=== PATIENT | male | born 1965 | race Caucasian/White ===

== ENCOUNTER 2016-05-28 17:02 | Emergency (ER) | payer BC ==
[2016-05-28] MEDS ORDERED: Ketorolac INJ* 30 MG/ML 1 ML VIAL IM ONE (17:21)
[2016-05-28] MEDS ORDERED: Ondansetron ODT TAB* 4 MG PO ONE (17:21)
--- NOTE | 2016-05-28 18:17 | RAD ---
Indication: Right flank pain. CT of the abdomen and pelvis was performed without oral or IV contrast administration. Coronal and sagittal reconstructed images were obtained. The lung bases demonstrate no pleural fluid, nodules or masses. Heart is of normal size without evidence of pericardial effusion. There is mild right hydronephrosis and hydroureter. There is a 3 mm calculi in the right ureterovesicular junction. Fullness of the right renal collecting system is noted. The left kidney demonstrates no hydronephrosis. The liver is normal in size. In the dome of the liver there is a well-circumscribed water density lobe lesion measuring 12 mm consistent with cysts. No other focal lesions or intrahepatic biliary duct dilatation is noted. The gallbladder demonstrates no calcified gallstones. No pericholecystic fluid or wall thickening is identified. The pancreas demonstrates no mass or pancreatic duct dilatation. The common bile duct is not dilated. The spleen is normal in size. No adrenal lesions are noted. The aorta and inferior vena cava are unremarkable. No definite retroperitoneal adenopathy is noted. Common iliac and external iliac arteries are unremarkable. Urinary bladder is unremarkable. No hernias are noted. No dilated loops of bowel are noted. IMPRESSION: THERE IS A 3 MM CALCULI IN THE RIGHT URETEROVESICULAR JUNCTION WITH MILD RIGHT HYDROURETER AND MILD RIGHT HYDRONEPHROSIS. ADDITIONAL TINY NONOBSTRUCTING CALCULI IS NOTED IN THE MIDPORTION OF THE RIGHT KIDNEY. LEFT KIDNEY IS UNREMARKABLE. LIKELY HEPATIC CYST IS PRESENT.
--- NOTE | 2016-05-28 18:34 | UC ---
Abdominal Pain Male HPI - History of Current Complaint Chief Complaint: UCBackPain Stated Complaint: BACK PAIN Time Seen by Provider: 05/28/16 17:15 Hx Obtained From: Patient Onset/Duration: Sudden Onset, Lasting Hours Timing: Constant Severity Initially: Moderate Severity Currently: Severe Pain Intensity: 8 Pain Scale Used: 0-10 Numeric Location: Other - right flank Character: Colicy Alleviating Factor(s): Nothing Associated Signs And Symptoms: Positive: Diaphoresis, Nausea, Vomiting - x 1 - Allergies/Home Medications Allergies/Adverse Reactions: Allergies Allergy/AdvReac Type Severity Reaction Status Date / Time No Known Allergies Allergy Verified 05/28/16 17:13 PMH/Surg Hx/FS Hx/Imm Hx Cardiovascular History Of: Reports: Cardiac Disorders - TACHYCARDIA, Hypertension - borderline - Surgical History Surgical History: None - Family History Known Family History: Positive: Hypertension - Social History Alcohol Use: Occasionally Substance Use Type: None Smoking Status (MU): Never Smoked Tobacco Review of Systems Constitutional: Negative Skin: Negative Eyes: Negative ENT: Negative Respiratory: Negative Cardiovascular: Negative Gastrointestinal: Vomiting Genitourinary: Negative Motor: Negative Neurovascular: Negative Musculoskeletal: Negative Neurological: Negative Psychological: Negative All Other Systems Reviewed And Are Negative: Yes Physical Exam Triage Information Reviewed: Yes Appearance: Well-Appearing, Well-Nourished, Pain Distress Vital Signs: Initial Vital Signs Temp 97.9 F 05/28/16 17:06 Pulse 86 05/28/16 17:06 Resp 20 05/28/16 17:06 BP 217/107 05/28/16 17:06 Pulse Ox 100 05/28/16 17:06 Vital Signs Reviewed: Yes Eyes: Positive: Conjunctiva Clear ENT: Positive: Hearing grossly normal. Negative: Nasal congestion, Tonsillar exudate, Trismus Neck: Positive: Supple Respiratory: Positive: Lungs clear, Normal breath sounds, No respiratory distress Cardiovascular: Positive: RRR, No Murmur Abdomen Description: Positive: Nontender, No Organomegaly, CVA Tenderness (R) - mild. Negative: Bruit, CVA Tenderness (L), Hepatomegaly, Splenomegaly Musculoskeletal: Positive: ROM Intact, No Edema Neurological: Positive: Alert Psychological Exam: Normal Skin Exam: Normal Re-Evaluation - Re-Evaluation First Eval Change: Improved - 2 pain Abd Pain Male Course/Dx - Differential Dx/Clinical Impression Provider Diagnoses: right urolithiasis Discharge - Discharge Plan Condition: Stable Disposition: HOME Prescriptions: HYDROcodone/ACETAMIN 5-325 MG* [[place] 5-325 TAB*] 1 tab PO Q4H PRN #10 tab MDD 6 PRN Reason: Pain Naproxen [Naproxen 500 MG TABS] 500 mg PO BID PRN #14 tab PRN Reason: Pain Ondansetron TAB* [Zofran Tab*] 4 mg PO Q6H PRN #10 tab PRN Reason: Nausea Patient Education Materials: Kidney Stones (ED) Referrals: Amilcar Blank MD [Primary Care Provider] - Additional Instructions: you should be able to pass this stone 8-12 glasses of water/d to ER for: Increased pain (not controlled by pain meds) vomiting fever you need to get rechecked in 1-2 weeks (your BP was high)
== END 2016-05-28 18:45 | disposition home or self-care (01) ==
LOC: UCEAST 17:02
DX: N13.2 Hydronephrosis with renal and ureteral calculous obstruction (principal)
CPT/HCPCS: 74176; 81002; 96372; 99212; A9270-GY; G0463; J1885

== ENCOUNTER 2018-10-20 16:32 | Emergency (ER) | payer BC ==
[2018-10-20 16:44] VITALS: BP 144/86
[2018-10-20] MEDS ORDERED: Ibuprofen TAB* 600 MG PO ONE (17:42)
--- NOTE | 2018-10-20 17:44 | UC ---
Respiratory Complaint HPI - HPI Summary HPI Summary: 53-year-old patient presents with 4 day history of fever, malaise, body aches, fatigue, SOB, and productive cough for green sputum. Denies ear pain, sore throat, nasal congestion, chest pain, abdominal pain, nausea, or vomiting. - History of Current Complaint Chief Complaint: UCRespiratory Stated Complaint: COUGH Time Seen by Provider: 10/20/18 17:24 Hx Obtained From: Patient Pain Intensity: 5 - Allergies/Home Medications Allergies/Adverse Reactions: Allergies Allergy/AdvReac Type Severity Reaction Status Date / Time No Known Allergies Allergy Verified 10/20/18 16:44 Home Medications: Home Medications Diphenhydra/Phenyleph/Acetamin [Cold & Flu Relief Multi-Sym Lq] 180 ml PO Q6HR PRN 10/20/18 [History Confirmed 10/20/18] Loratadine [Claritin 10 MG CAP] 10 mg PO DAILY 10/20/18 [History Confirmed 10/20] PMH/Surg Hx/FS Hx/Imm Hx Previously Healthy: Yes - Surgical History Surgical History: None - Family History Known Family History: Positive: Hypertension - Social History Occupation: Employed Full-time Lives: With Family Alcohol Use: Occasionally Substance Use Type: None Smoking Status (MU): Never Smoked Tobacco Review of Systems All Other Systems Reviewed And Are Negative: Yes Constitutional: Positive: Fever, Chills, Fatigue Skin: Negative: Rash Eyes: Negative: Drainage, Eye Redness ENT: Negative: Sore Throat, Ear Ache, Nasal Discharge, Sinus Congestion, Sinus Pain/Tenderness Respiratory: Positive: Shortness Of Breath, Cough Cardiovascular: Negative: Palpitations, Chest Pain Gastrointestinal: Negative: Abdominal Pain, Vomiting, Diarrhea, Nausea Genitourinary: Positive: Negative Musculoskeletal: Positive: Negative Neurological: Positive: Negative Is Patient Immunocompromised?: No Physical Exam - Summary Physical Exam Summary: GENERAL APPEARANCE: Well developed, well nourished, alert and cooperative, and appears to be in no acute distress. EYES: Conjunctiva clear. No drainage. EARS: External auditory canals and tympanic membranes clear, hearing grossly intact. NOSE: No nasal discharge. THROAT: Pharynx normal. No tonsilar inflammation, swelling, exudate, or lesions. Uvula midline. Oral cavity normal. Teeth and gingiva in good general condition. NECK: Neck supple, non-tender without lymphadenopathy. CARDIAC: Normal S1 and S2. No S3, S4 or murmurs. Rhythm is regular. Tachycardic. There is no peripheral edema, cyanosis or pallor. Extremities are warm and well perfused. Capillary refill is less than 2 seconds. Peripheral pulses intact. LUNGS: Bilateral diffuse wheezes, crackles in the left base. ABDOMEN: Positive bowel sounds. Soft, nondistended, nontender. No guarding or rebound. No masses or hepatosplenomegally. MUSKULOSKELETAL: ROM intact to all extremities. No joint erythema or tenderness. Normal muscular development. Normal gait. SKIN: Skin normal color, texture and turgor with no lesions or eruptions. Triage Information Reviewed: Yes Vital Signs: Initial Vital Signs Temp 102.6 F 10/20/18 16:40 Pulse 112 10/20/18 16:40 Resp 16 10/20/18 16:40 BP 144/86 10/20/18 16:40 Pulse Ox 98 10/20/18 16:40 Vital Signs Reviewed: Yes Diagnostics - Radiology No standard instances Radiology Interpretation Completed By: ED Physician - LLL infiltrate Re-Evaluation - Re-Evaluation First Eval Re-Evaluation Time: 18:20 Change: Improved Comment: Patient states breathing easier. Continues to have mild scattered wheezes blataterally but air exchange improved. Respiratory Course/Dx - Course Course Of Treatment: 53-year-old patient presents with 4 day history of fever, malaise, body aches, fatigue, SOB, and productive cough for green sputum. Denies ear pain, sore throat, nasal congestion, chest pain, abdominal pain, nausea, or vomiting. Patient was noted to be febrile with a temperature of 102.6 F at triage. His temperature increased to as high as 103.6 during his time in the clinic. He was also noted to be tachycardic otherwise VSS. He was given ibuprofen 600 mg PO with a reduction in his temperature. On exam, patient was tachycardic and had bilateral diffuse wheezes with crackles in the left base. Preliminary reading of CXR was infiltrate in the LLL. Patient was given a DuoNeb with improvement in his SOB and wheezing. Will treat him for CAP with doxycycline 100 mg BID x 10 days. I have also prescribed prednisone 50 mg daily x 5 days and an albuterol inhaler 2 puffs every 4-6 hours for the SOB and wheezing as well as Tessalon Perles 1 cap every 8 hours as needed for cough. He is to follow up with his PCP within 5 days for a recheck of his symptoms. Anticipatory guidance and warning symptoms were reviewed with the patient. Verbalizes understanding and agrees with POC. - Differential Dx/Diagnosis Differential Diagnosis/HQI/PQRI: Bronchitis, Influenza, Lower Resp Infection Provider Diagnosis: CAP (community acquired pneumonia) Discharge - Sign-Out/Discharge Documenting (check all that apply): Patient Departure All imaging exams completed and their final reports reviewed: No Studies - Discharge Plan Condition: Stable Disposition: HOME Prescriptions: Albuterol HFA INHALER* [Ventolin HFA Inhaler*] 2 puff INH Q4H PRN #1 mdi PRN Reason: Sob/Wheezing Benzonatate CAP* [Tessalon 100 MG CAP*] 100 mg PO TID PRN #21 cap PRN Reason: Cough Doxycycline Hyclate 100 mg PO BID #20 tablet predniSONE TAB* [Deltasone TAB*] 50 mg PO DAILY #5 tab Patient Education Materials: Pneumonia (ED) Referrals: Amilcar Blank MD [Primary Care Provider] - 5 Days Additional Instructions: The x-ray performed in the clinic today does appear to show a left lower pneumonia. The x-ray will be reviewed by the radiologist tomorrow and we will notify you of they see something that will change her plan of care. Start doxycycline 100 mg 1 tablet twice a day for 10 days to treat the infection. Avoid milk products for at least 2 hours before or after taking this medication as it will affect the absorption of the antibiotic. You will also need to take precautions when out in the sun while on this medication as it will cause you to burn more easily. Start prednisone 50 mg 1 tablet daily for the next 5 days to help with the inflammation your airways and the wheezing. X Use the albuterol inhaler 2 puffs every 4-6 hours as needed for any shortness of breath or wheezing. Get plenty of rest. Drink plenty of fluids. Run a cool mist humidifer in your room at night. Take over the counter acetaminophen (Tylenol) or ibuprofen (Advil, Motrin) according to directions as needed for pain or fever. Take Tessalon Perles 1 cap every 8 hours as needed for cough. Follow up with your primary care provider within 5 days for recheck of symptoms. Seek immediate medical attention in the emergency room if you have fever greater than 100.5 F despite taking acetaminophen or ibuprofen, have chest pain , difficulty breathing, or have any worsening of symptoms. - Billing Disposition and Condition Condition: STABLE Disposition: Home
[2018-10-20 17:45] LABS: Influenza A Molecular NEGATIVE (Negative); Influenza B Molecular NEGATIVE (Negative)
[2018-10-20] MEDS ORDERED: Albuterol/Ipratropium NEB.SOL* Albuterol 2.5 MG/Ipratropium 0.5 MG 3 ML INH ONE (17:52)
== END 2018-10-20 18:30 | disposition home or self-care (01) ==
LOC: UCEAST 16:32
DX: J18.9 Pneumonia, unspecified organism (principal)
CPT/HCPCS: 71046; 99212; A9270-GY; G0463